=== PATIENT | male | born 1965 | race Two or more races ===

== ENCOUNTER → 2021-06-16 | Emergency (ER) | payer OTHER ==
[~2021-06-16] VITALS: Ht 175.3 cm; Wt 94.3 kg
[~2021-06-16] MED LIST: AMLODIPINE BESYL5 MG PO; LOTENSIN HCT 11 EACH
== END | disposition left against medical advice (07) ==
LOC: ER 13:37
DX: G44.209 Tension-type headache, unspecified, not intractable (principal)